=== PATIENT | female | born 1930 | race Native Hawaiian/Other Pacific Islander ===

== ENCOUNTER 2016-06-05 15:55 | Outpatient (CLI) | payer OTHER, MEDICARE | END 2016-06-05 19:13 | disposition home or self-care (01) | LOC: LABW 15:55 | DX: R53.81 Other malaise (principal) | CPT/HCPCS: 36415; 84436; 84443; 84479 ==

== ENCOUNTER 2016-07-03 12:21 | Outpatient (CLI) | payer OTHER, MEDICARE | END 2016-07-03 12:36 | disposition short-term general hospital (02) | LOC: AMB 12:21 | DX: R55 Syncope and collapse (principal); R53.1 Weakness; E86.0 Dehydration | CPT/HCPCS: A0425; A0427 ==

== ENCOUNTER 2016-07-03 12:36 | Emergency (ER) | payer OTHER, MEDICARE ==
[~2016-07-03] VITALS: Ht 167.6 cm; Wt 77.1 kg
[2016-07-03 13:35] LABS: PLATELET COUNT 264 K/uL (152-353)
[2016-07-03 13:37] LABS: POTASSIUM 3.3 mmol/L (3.6-5.2)
[2016-07-03 16:41] VITALS: BP 115/72; TEMP 97.1
== END 2016-07-03 17:04 | disposition home or self-care (01) ==
LOC: ED 12:36
DX: E86.0 Dehydration (principal); I95.89 Other hypotension; E86.9 Volume depletion, unspecified; R19.7 Diarrhea, unspecified; R11.2 Nausea with vomiting, unspecified; K51.30 Ulcerative (chronic) rectosigmoiditis without complications
CPT/HCPCS: 36415; 80053; 81000; 85027; 87804; 96360; 96374; 99284; J2405

== ENCOUNTER 2016-08-10 11:25 | Outpatient (CLI) | payer OTHER, MEDICARE | END 2016-08-10 12:30 | disposition home or self-care (01) | LOC: RAD 11:25 | DX: M25.512 Pain in left shoulder (principal) ==

== ENCOUNTER 2016-08-12 09:53 | Outpatient (CLI) | payer OTHER, MEDICARE | END 2016-08-12 19:02 | disposition home or self-care (01) | LOC: MRI 09:53 | DX: M54.2 Cervicalgia (principal); R51 Headache ==

== ENCOUNTER 2016-08-14 09:25 | Outpatient (CLI) | payer OTHER, MEDICARE | END 2016-08-14 19:08 | disposition home or self-care (01) | LOC: CT 09:25 → MRI 10:00 → CT 10:00 | DX: M54.2 Cervicalgia (principal) ==

== ENCOUNTER 2016-09-30 14:23 | Outpatient (CLI) | payer OTHER, MEDICARE | END 2016-09-30 16:00 | disposition home or self-care (01) | LOC: MAMMO 14:23 | DX: Z12.31 Encounter for screening mammogram for malignant neoplasm of breast (principal) | CPT/HCPCS: G0202-TC ==

== ENCOUNTER 2017-06-14 10:34 | Outpatient (CLI) | payer OTHER, MEDICARE | END 2017-06-14 18:53 | disposition home or self-care (01) | LOC: MRI 10:34 | DX: G25.2 Other specified forms of tremor (principal) ==

== ENCOUNTER 2017-10-01 09:40 | Inpatient (IN) | payer OTHER, MEDICARE ==
[~2017-10-01] VITALS: Ht 157.5 cm; Wt 72.2 kg
[2017-10-01 09:39] VITALS: BP 137/61; TEMP 98.1
[~2017-10-01 09:40] MED LIST: AMITRIPTYLIN50 MG PO; AMLODIPINE BESYLATE PO; CIPRO500 MG PO; FURO40TA93 PO; GNP STOOL SOFT PO; KLOR-CON SPRIN10 MEQ PO; LISI20TA11 PO; MELOXICAM15 MG PO; METR250T19 PO; OXYB5TAB56 PO; ZANTAC300 MG PO
[2017-10-01 10:45] VITALS: BP 135/69
[2017-10-01 10:45] LABS: PLATELET COUNT 176 K/uL (152-353)
[2017-10-01 10:50] LABS: POTASSIUM 3.9 mmol/L (3.6-5.2)
[2017-10-01 14:24] VITALS: BP 125/51; TEMP 97.4; Ht 157.5 cm; Wt 72.2 kg
[2017-10-01 16:00] VITALS: BP 125/51; TEMP 97.4
[2017-10-01 20:00] VITALS: BP 146/59; TEMP 103.5
[2017-10-02] VITALS: BP 118/60; TEMP 99
[2017-10-02 04:00] VITALS: BP 129/60; TEMP 98.9
[2017-10-02 07:14] LABS: PLATELET COUNT 157 K/uL (152-353)
[2017-10-02 07:17] LABS: POTASSIUM 3.6 mmol/L (3.6-5.2)
[2017-10-02 08:00] VITALS: BP 132/61; TEMP 98.8
[2017-10-02 11:41] VITALS: BP 121/54; TEMP 98.4
[2017-10-02] MEDS ORDERED: SIMV40TA57 (12:55)
[2017-10-02] MEDS ORDERED: ASPIRIN 81 LOW81 MG PO (15:45)
[2017-10-02 16:00] VITALS: BP 113/56; TEMP 98.4
[2017-10-02 20:00] VITALS: BP 144/63; TEMP 98.4
[2017-10-03] VITALS: BP 175/75; TEMP 99.7
[2017-10-03 04:00] VITALS: BP 137/66; TEMP 99.3
[2017-10-03 07:40] LABS: PLATELET COUNT 148 K/uL (152-353)
[2017-10-03 07:52] LABS: POTASSIUM 3.2 mmol/L (3.6-5.2)
[2017-10-03 08:00] VITALS: BP 142/57; TEMP 99.1
[2017-10-03 12:00] VITALS: BP 119/59; TEMP 98.1
[2017-10-03 16:00] VITALS: BP 123/58; TEMP 98.1
[2017-10-03 20:00] VITALS: BP 130/61; TEMP 98.3
[2017-10-04] VITALS: BP 124/60; TEMP 98.8
[2017-10-04 04:00] VITALS: BP 121/58; TEMP 98.8
[2017-10-04 06:03] LABS: PLATELET COUNT 172 K/uL (152-353)
[2017-10-04 06:30] LABS: POTASSIUM 3.2 mmol/L (3.6-5.2)
[2017-10-04 08:00] VITALS: BP 116/58
[2017-10-04 12:09] VITALS: BP 123/76; TEMP 97.8
[2017-10-04 16:25] VITALS: BP 132/59; TEMP 97.8
[2017-10-04 20:00] VITALS: BP 134/66; TEMP 98.1
[2017-10-05] VITALS: BP 149/74; TEMP 98.7
[2017-10-05 04:00] VITALS: BP 141/67; TEMP 98.4
[2017-10-05 07:58] LABS: POTASSIUM 3.6 mmol/L (3.6-5.2)
[2017-10-05 08:00] VITALS: BP 138/68; TEMP 98.3
[2017-10-05 10:16] LABS: PLATELET COUNT 199 K/uL (152-353)
[2017-10-05 12:00] VITALS: BP 125/62; TEMP 98.3
[2017-10-05 16:00] VITALS: BP 137/61; TEMP 98
[2017-10-05 20:29] VITALS: BP 141/63; TEMP 98.8
[2017-10-06 00:12] VITALS: BP 140/60; TEMP 99.7
[2017-10-06 04:00] VITALS: BP 136/56; TEMP 98.4
[2017-10-06 08:05] VITALS: BP 128/55; TEMP 99
[2017-10-06 12:21] VITALS: BP 95/58; TEMP 98
== END 2017-10-06 15:55 | disposition home or self-care (01) | DRG 373 ==
LOC: ED 09:40 → MED/SURG 12:20
PROVIDERS: Family Medicine; ADMIT Student in an Organized Health Care Education/Training Program
DX: A04.72 Enterocolitis due to Clostridium difficile, not specified as recurrent (principal); R41.82 Altered mental status, unspecified; E86.0 Dehydration; E87.6 Hypokalemia; D72.828 Other elevated white blood cell count; I10 Essential (primary) hypertension; E78.00 Pure hypercholesterolemia, unspecified; K21.9 Gastro-esophageal reflux disease without esophagitis
CPT/HCPCS: 36415; 80048; 80053; 81000; 83735; 84484; 85027; 87040; 87324; 87449; 93005; 96367; 96372; 99283; J0696; J1650; J2270; J3480; J3490

== ENCOUNTER 2017-10-20 09:48 | Outpatient (CLI) | payer OTHER, MEDICARE ==
[~2017-10-20 09:48] MED LIST changes: +ASPIRIN 81 LOW81 MG PO; +SIMV40TA57
== END 2017-10-20 21:32 | disposition home or self-care (01) ==
LOC: MAMMO 09:48
DX: Z12.31 Encounter for screening mammogram for malignant neoplasm of breast (principal)

== ENCOUNTER 2017-10-22 14:05 | Outpatient (CLI) | payer OTHER, MEDICARE | END 2017-10-22 19:43 | disposition home or self-care (01) | LOC: LABW 14:05 | DX: R19.7 Diarrhea, unspecified (principal) | CPT/HCPCS: 87324; 87449 ==

== ENCOUNTER 2017-11-05 20:54 | Emergency (ER) | payer OTHER, MEDICARE ==
[~2017-11-05] VITALS: Ht 157.5 cm; Wt 76.7 kg
[2017-11-05 21:50] VITALS: BP 155/77; TEMP 97.8
== END 2017-11-05 21:50 | disposition home or self-care (01) ==
LOC: ED 20:54
PROC: 0HQGXZZ Repair Left Hand Skin, External Approach (ICD-10-PCS; principal; 2017-11-05)
PROC: 0HQEXZZ Repair Left Lower Arm Skin, External Approach (ICD-10-PCS; 2017-11-05)
DX: S61.412A Laceration without foreign body of left hand, initial encounter (principal); S51.012A Laceration without foreign body of left elbow, initial encounter; W18.09XA Striking against other object with subsequent fall, initial encounter; Y93.H2 Activity, gardening and landscaping; Y92.89 Other specified places as the place of occurrence of the external cause
CPT/HCPCS: 99283

== ENCOUNTER 2017-11-15 11:18 | Emergency (ER) | payer OTHER, MEDICARE ==
[~2017-11-15] VITALS: Ht 157.5 cm; Wt 72.6 kg
[2017-11-15 11:20] VITALS: BP 122/6; TEMP 97.6
== END 2017-11-15 11:45 | disposition home or self-care (01) ==
LOC: ED 11:18
DX: Z48.02 Encounter for removal of sutures (principal)

== ENCOUNTER → 2018-03-01 | Day surgery (SDC) | payer OTHER, MEDICARE ==
[2018-03-01 08:39] LABS: PLATELET COUNT 221 K/uL (152-353)
[2018-03-01 08:49] LABS: POTASSIUM 3.2 mmol/L (3.6-5.2)
== END ==
LOC: OR 07:00
PROVIDERS: Student in an Organized Health Care Education/Training Program
PROC: 0DJD8ZZ Inspection of Lower Intestinal Tract, Via Natural or Artificial Opening Endoscopic (ICD-10-PCS; principal; 2018-03-01)
DX: Z86.010 Personal history of colon polyps (principal); Z12.11 Encounter for screening for malignant neoplasm of colon
CPT/HCPCS: 80053; 85027; J2001; J2704

== ENCOUNTER 2018-03-04 09:33 | Outpatient (CLI) | payer OTHER, MEDICARE | END 2018-03-04 18:58 | disposition home or self-care (01) | LOC: RAD 09:33 | DX: Z13.820 Encounter for screening for osteoporosis (principal); Z78.0 Asymptomatic menopausal state ==

== ENCOUNTER 2018-11-25 13:11 | Outpatient (CLI) | payer OTHER, MEDICARE | END 2018-11-25 21:31 | disposition home or self-care (01) | LOC: MAMMO 13:11 | DX: Z12.31 Encounter for screening mammogram for malignant neoplasm of breast (principal) ==

== ENCOUNTER 2019-02-02 21:48 | Emergency (ER) | payer OTHER, MEDICARE ==
[~2019-02-02] VITALS: Ht 167.6 cm; Wt 76.7 kg
[2019-02-02 22:54] VITALS: BP 104/70; TEMP 98.2
== END 2019-02-02 22:54 | disposition home or self-care (01) ==
LOC: ED 21:48
DX: S61.012A Laceration without foreign body of left thumb without damage to nail, initial encounter (principal); W26.0XXA Contact with knife, initial encounter; Y93.89 Activity, other specified; Y92.010 Kitchen of single-family (private) house as the place of occurrence of the external cause
CPT/HCPCS: 90471; 90715; 99282; 99283

== ENCOUNTER 2020-01-03 12:54 | Outpatient (CLI) | payer OTHER, MEDICARE | END 2020-01-03 23:54 | disposition home or self-care (01) | LOC: MRI 12:54 | PROVIDERS: ATTEND Family Medicine | DX: Z12.31 Encounter for screening mammogram for malignant neoplasm of breast (principal); M25.512 Pain in left shoulder; M67.812 Other specified disorders of synovium, left shoulder ==

== ENCOUNTER 2021-02-11 13:29 | Outpatient (CLI) | payer OTHER, MEDICARE | END 2021-02-11 19:16 | disposition home or self-care (01) | LOC: MAMMO 13:29 | PROVIDERS: ATTEND Family Medicine | DX: Z12.31 Encounter for screening mammogram for malignant neoplasm of breast (principal); Z78.0 Asymptomatic menopausal state ==

== ENCOUNTER 2021-05-13 09:51 | Outpatient (CLI) | payer OTHER, MEDICARE | END 2021-05-13 19:06 | disposition home or self-care (01) | LOC: US 09:51 | PROVIDERS: ATTEND Nurse Practitioner Family | DX: N18.31 Chronic kidney disease, stage 3a (principal) ==

== ENCOUNTER 2021-06-19 14:02 | Outpatient (CLI) | payer OTHER, MEDICARE | END 2021-06-19 19:05 | disposition home or self-care (01) | LOC: LABW 14:02 | PROVIDERS: ATTEND Nurse Practitioner Family | DX: D50.9 Iron deficiency anemia, unspecified (principal) | CPT/HCPCS: 82272 ==

== ENCOUNTER 2021-10-23 13:53 | Outpatient (CLI) | payer OTHER, MEDICARE | END 2021-10-23 20:54 | disposition home or self-care (01) | LOC: RAD 13:53 | PROVIDERS: ATTEND Family Medicine | DX: M25.552 Pain in left hip (principal); R10.2 Pelvic and perineal pain ==

== ENCOUNTER 2022-04-27 10:40 | Outpatient (CLI) | payer OTHER, MEDICARE ==
[2022-04-27 11:20] LABS: PLATELET COUNT 208 K/uL (152-353)
[2022-04-27 11:30] LABS: POTASSIUM 4.1 mmol/L (3.6-5.2)
== END 2022-04-27 21:35 | disposition home or self-care (01) ==
LOC: LABW 10:40
PROVIDERS: ATTEND Family Medicine
DX: I10 Essential (primary) hypertension (principal); E78.2 Mixed hyperlipidemia; Z79.899 Other long term (current) drug therapy; R73.03 Prediabetes
CPT/HCPCS: 36415; 80053; 80061; 83036; 84443; 85027

== ENCOUNTER 2022-06-14 17:59 | Emergency (ER) | payer OTHER, MEDICARE ==
[~2022-06-14] VITALS: Ht 167.6 cm; Wt 76.7 kg
[2022-06-14 18:36] VITALS: TEMP 98.2
[2022-06-14 20:15] VITALS: BP 133/55
== END 2022-06-14 20:15 | disposition home or self-care (01) ==
LOC: ED 17:59
DX: S81.812A Laceration without foreign body, left lower leg, initial encounter (principal); X58.XXXA Exposure to other specified factors, initial encounter
CPT/HCPCS: 99283